=== PATIENT | male | born 1960 | race Caucasian/White ===

== ENCOUNTER 2023-12-29 09:27 | Day surgery (SDC) | payer BC ==
[~2023-12-29 09:27] MED LIST: Midazolam 1 MG/ML 2 ML SDV ONE; Propofol 200 MG/20 ML SDV ONE
[2023-12-29] MEDS ORDERED: Sodium Chloride 0.9% 10 ML Syringe FLUSH PRN (09:30)
[2023-12-29] MEDS: Lactated Ringers 1,000 ML IV SCH (09:43)
[2023-12-29] MEDS ORDERED: Glycopyrrolate 0.2 MG/ML SDV IVPUSH ONE (09:53)
== END 2023-12-29 11:35 | disposition home or self-care (01) ==
LOC: LL.SDS 09:27
PROVIDERS: ATTEND Surgery
DX: Z12.11 Encounter for screening for malignant neoplasm of colon (principal); D12.4 Benign neoplasm of descending colon; D12.2 Benign neoplasm of ascending colon; D12.3 Benign neoplasm of transverse colon; K20.90 Esophagitis, unspecified without bleeding; R00.2 Palpitations; Z86.010 Personal history of colon polyps; Z80.0 Family history of malignant neoplasm of digestive organs; T78.40XA Allergy, unspecified, initial encounter; R19.4 Change in bowel habit; R13.10 Dysphagia, unspecified; Z79.899 Other long term (current) drug therapy; Z79.82 Long term (current) use of aspirin; Z91.030 Bee allergy status
CPT/HCPCS: J1596; J2250; J2704; J7120